=== PATIENT | female | born 1995 | race African-American/Black ===

== ENCOUNTER 2016-08-28 10:36 | Emergency (ER) | payer OTHER ==
[2016-08-28] MEDS ORDERED: Meclizine HCl 25 MG TAB ONE ×2 (11:18→11:19)
[2016-08-28 11:35] LABS: Blood, Urine Negative (Negative); Glucose, Urine (Dipstick) Negative (Negative); Ketone, Urine 40 mg/dL (Negative); Nitrite Negative (Negative); Protein, Urine (Dipstick) Negative (Neg-Trace)
[2016-08-28 11:37] LABS: #Basophils 0.1 thou/uL (0.0-0.2); #Lymphocytes 2.2 thou/uL (1.20-3.40); #Monocytes 0.9 thou/uL (0.11-0.59); #Neutrophils 8.1 thou/uL (1.40-6.50); %Eosinophils 0.4 % (0.0-10.0); %Lymphocytes 19.5 % (21.0-51.0); %Monocytes 7.5 % (0.0-10.0); Hematocrit 38.8 % (36.0-47.0); Mean Platelet Volume 10.2 fL (7.4-10.4); Red Blood Cell (RBC) Count 4.63 mill/uL (4.20-5.40); White Blood Cell (WBC) Count 11.3 thou/uL (4.8-10.8)
[2016-08-28 11:37] LABS: Bilirubin Negative (Negative)
[2016-08-28 11:46] LABS: ALT (SGPT) 8 U/L (0-55); AST (SGOT) 12 U/L (5-34); Alkaline Phosphatase 92 U/L (40-150); Anion Gap 13 mmol/L (10-20); BUN (Urea Nitrogen) 9 mg/dL (7.0-18.7); Bilirubin, Total 0.7 mg/dL (0.2-1.2); Calc. Creatinine Clearance 0 mL/min (70-130); Calcium 8.8 mg/dL (7.8-10.44); Carbon Dioxide 21 mmol/L (22-29); Chloride 108 mmol/L (98-107); Estimated GFR-MDRD Greater than 90; Globulin 4.2 g/dL (2.4-3.5)
--- NOTE | 2016-08-28 12:11 | CT ---
CT HEAD WITHOUT IV CONTRAST: Date: 08/28/16 HISTORY: Persistent vertigo and migraines for 2 days. Hypertension. FINDINGS: There is no evidence of a hemorrhage, acute infarction, mass effect, or midline shift. Ventricular s ystem is normal in size, shape, and position. There is complete opacification of the left maxillary antrum with almost complete opacification of t he visualized right maxillary antrum. There is opacification of the left sphenoid sinus and left eth moidal air cells. Mastoid air cells are clear. Calvarial structures are intact. IMPRESSION: 1. No acute intracranial abnormality is demonstrated. 2. Sinus disease, including opacification of each sphenoid sinus and left frontal sinus. POS: H
--- NOTE | 2016-08-28 12:34 | ERRECORD ---
[facility] EMERGENCY RECORD HPI GENERAL (12:17 PMYE) CHIEF COMPLAINT: Patient presents for evaluation of Dizzy / off balance. HISTORIAN: History provided by patient. MECHANISM OF INJURY: Unknown mechanism. LOCATION: Symptoms are generalized, 21 y/o F who c/o. Dizzyness, vertigo, Feeling "off balance" intermittently over the last month. Worse in the last two days. SEVERITY: Maximum severity of symptoms mild, Currently symptoms are moderate. TIME COURSE: Gradual onset of symptoms. EXACERBATED BY: Patient's condition exacerbated by moving head. RELIEVED BY: Patient's condition relieved by nothing. ROS (12:19 PMYE) CONSTITUTIONAL: Negative constitutional review of systems, Historian denies chills, denies fatigue, denies fever. EYES: Negative eye review of systems, Historian denies eye pain, denies eye redness, denies eye discharge. ENT: Negative ears, nose, throat review of systems, Historian denies dysphasia, denies epistaxis, denies otalgia, denies sore throat. CARDIOVASCULAR: Negative cardiovascular review of systems, Historian denies chest pain, denies dyspnea on exertion, denies syncope, denies palpitations. RESPIRATORY: Negative respiratory review of systems, Historian denies cough, denies shortness of breath, denies wheezing. GI: Negative gastrointestinal review of systems, Historian denies abdominal pain, denies constipation, denies diarrhea, denies nausea, denies vomiting. GENITOURINARY FEMALE: Negative genitourinary review of systems, Historian denies dysuria, denies urgency, denies vaginal bleeding, denies vaginal discharge. MUSCULOSKELETAL: Historian denies arthralgias, denies myalgias. SKIN: Negative skin review of systems, Historian denies rash, denies skin changes. NEUROLOGIC: Historian denies confusion, reports dizziness, denies focal weakness, denies headache, reports vertigo. PSYCHIATRIC: Negative psychiatric review of systems. PAST MEDICAL HISTORY (10:45 [facility]) MEDICAL HISTORY: No past medical history. FEMALE SURGICAL HISTORY: Patient has no surgical history. PSYCHIATRIC HISTORY: No previous psychiatric history. SOCIAL HISTORY: Patient denies alcohol use, Patient denies drug use, Patient has no smoking history, Patient denies alcohol use, Patient denies drug use, Patient has no smoking history, Lives at home, with family. &a-1R&a+25V*p+0X*s7375Y*c202B*c15G*c2P*p-0X&a-25V&a+1R Name: Neida Mata : 1995 F21 MedRec: [id number] AcctNum: [id number] Prepared: SunAug 28, 2016 12:45 by Interface Page 1 of 3 pMD [facility] EMERGENCY RECORD FAMILY HISTORY: Notes: HTN, Crohn's Disease. KNOWN ALLERGIES No Known Drug Allergies CURRENT MEDICATIONS (10:40 [facility]) None VITAL SIGNS (10:37 [facility]) VITAL SIGNS: BP: 126/75, Pulse: 89, Resp: 18, Temp: 98.5 (Oral), Pain: 0, O2 sat: 95 on Room Air, Time: 08/28/2016 10:37. PHYSICAL EXAM (12:19 PMYE) CONSTITUTIONAL: Vital Signs Reviewed, Patient afebrile, Pulse normal, Blood pressure normal, Respiratory rate normal, Patient appears non toxic. HEAD: Head exam included findings of head atraumatic, normocephalic. EYES: Eye exam included findings of eyelids normal to inspection, Pupils equally round and reactive to light, Extraocular muscles intact. ENT: ENT exam normal, Pharynx exam normal, Uvula exam normal, Tonsil exam normal. NECK: Neck exam normal. RESPIRATORY CHEST: Respiratory and chest exam normal, Breath sounds clear, No wheezing, No rales. ABDOMEN FEMALE: Abdominal exam normal, Abdominal exam included findings of abdomen nontender, Bowel sounds normal. BACK: Back exam normal. NEURO: Neuro exam normal, [place] coma scale 15, Neuro exam findings include patient oriented to person, place and time, Speech normal. SKIN: Skin exam normal. PSYCHIATRIC: Psychiatric exam normal, Psychiatric exam included findings of patient oriented to person place and time, Normal affect. MEDICATION ADMINISTRATION SUMMARY Drug Name: Antivert, Dose Ordered: 25 mg, Route: Oral, Status: Given, Time: 11:24 08/28/2016, Detailed record available in Medication Service section. DOCTOR NOTES (12:20 PMYE) TEXT: CT show opacification of mult sinus. Pt reports green d/c when blowing nose. Likely sinusitis causing disequilibrium. Will tx and pt will f/u w/ PCP. PROBLEM LIST No recorded problems &a-1R&a+25V*p+0X*u8506B*c202B*c15G*c2P*p-0X&a-25V&a+1R Name: Neida Mata : 1995 F21 MedRec: [id number] AcctNum: [id number] Prepared: SunAug 28, 2016 12:45 by Interface Page 2 of 3 pMD [facility] EMERGENCY RECORD DIAGNOSIS (12:22 PMYE) FINAL: PRIMARY: ACUTE SINUSITIS UNSPECIFIED. PRESCRIPTION (12:24 PMYE) doxycycline hyclate oral: CAPSULE : 100 mg : ORAL : Quantity: 100 Unit: mg Route: ORAL Schedule: every 12 hours Dispense: 10 Unit: mg May substitute. Refills: No Refills . NOTES: No Refills. DISPOSITION PATIENT: Disposition Type: Discharge, Disposition: *Discharge Home. (12:22 PMYE) Patient left the department. (12:40 [facility]) Mcwilliams: PMYE=DO Cid Paul [facility]=JC Perez, Grisel &a-1R&a+25V*p+0X*t4220O*c202B*c15G*c2P*p-0X&a-25V&a+1R Name: Neida Mata : 1995 F21 MedRec: [id number] AcctNum: [id number] Prepared: SunAug 28, 2016 12:45 by Interface Page 3 of 3 pMD MTDD
--- NOTE | 2016-08-28 12:40 | PICIS ---
[facility] EMERGENCY RECORD TRIAGE (10:40 RK) TRIAGE NOTES: Pt has been having migraines x2 days and c/o hypertension to EMS. VSS per EMS, pt has received 4 mg Zofran. Pt reports hx migraines. (10:40 RK) PATIENT: NAME: Neida Mata, AGE: 21, GENDER: female, : Lia 1995, TIME OF GREET: SunAug 28, 2016 10:37, PREFERRED LANGUAGE: Romansh, ETHNICITY: Not or , ECODE BILLING MAP: [facility] ER, SSN: [id number], Zip Code: [address], KG WEIGHT: 77.11 (est.), PHONE: , , , PERSON ID: [id number], PCP: Beverly Guillen. (10:40 RUST) COMPLAINT: NAUSEA,DIZZINESS. (10:40 RKUH) ADMISSION: URGENCY: 4 Non Urgent, ADMISSION SOURCE: Home, AMBULANCE: [facility], TRANSPORT: AMBULANCE - [facility], BED: ER -02. (10:40 RK) IMMUNIZATIONS: Flu vaccine not up to date, Tetanus not up to date. (10:45 RKUH) SIRS SCORING: Heart Rate 55-109 (0), Temp range 96.8-101.1 (0), respiratory rate 12-24 (0), Mental Status altered: no (0). (10:45 RK) TRIAGE SCREENING: Patient denies suicidal ideation, Patient denies presence of domestic violence. (10:45 RK) LMP: , P: 2. (10:45 RK) PROVIDERS: TRIAGE NURSE: Grisel Perez RN. (10:40 RK) VITAL SIGNS: BP 126/75, Pulse 89, Resp 18, Temp 98.5, (Oral), Pain 0, O2 Sat 95, on Room Air, Time 08/28/2016 10:37. (10:37 RK) PREVIOUS VISIT ALLERGIES: No Known Drug Allergies. (10:40 RKUH) No Known Drug Allergies. (10:45 RKUH) KNOWN ALLERGIES No Known Drug Allergies CURRENT MEDICATIONS (10:40 RKUH) None VITAL SIGNS (10:37 RKUH) VITAL SIGNS: BP: 126/75, Pulse: 89, Resp: 18, Temp: 98.5 (Oral), Pain: 0, O2 sat: 95 on Room Air, Time: 08/28/2016 10:37. NURSING ASSESSMENT: ABDOMEN (10:40 RUST) CONSTITUTIONAL: Complex assessment performed, Patient arrives, via [facility], Gait steady, History obtained from patient, Patient appears comfortable, Patient cooperative, Patient alert, Oriented to person, place and time, Skin warm, Skin dry, Skin normal in color, Mucous membranes pink, Mucous membranes moist, Patient is well-groomed, Pt has had DODSON x2 days and reports hx migraines. She is in no pain currently, but is feelizing dizzy and still nauseated. She has not thrown up today, but reports throwing 4 times in the last two days. Denies any fever. PAIN: Patient rates pain as 0 out of 10. &a-1R&a+25V*p+0X*h0253C*c202B*c15G*c2P*p-0X&a-25V&a+1R Name: Neida Mata : 1995 F21 MedRec: [id number] AcctNum: [id number] Prepared: SunAug 28, 2016 12:51 by Interface Page 1 of 7 pMD [facility] EMERGENCY RECORD ABDOMEN: Abdomen assessment findings include abdomen symmetrical, Abdomen soft, non-tender, Bowel sound normal, Associated with nausea, Associated with vomiting, no associated diarrhea, no associated constipation. LMP: : 2, Para: 2, First day last menstrual period, Last period started on 08/11/2016 10:43, No control utilized. SAFETY: Side rails up, Cart/Stretcher in lowest position, Call light within reach, Hospital ID band on. NURSING PROCEDURE: DISCHARGE NOTE (12:39 RUST) DISCHARGE: Patient discharged to home, ambulating without assistance, family driving, accompanied by parent, Discharge instructions given to patient, Simple or moderate discharge teaching performed, by JC Recinos, Patient treated and evaluated by physician. BELONGINGS: Belongings and valuables with patient upon arrival to the Emergency Department include:, Belongings and valuables with patient at time of discharge include:. NURSING PROCEDURE: URINE COLLECTION (11:25 RUST) URINE COLLECTION FEMALE: Urine collected by mid-stream clean catch, Output amount (mL) 200, urine martha in color, and clear, Specimen labeled in the presence of the patient and sent to lab. SAFETY: Side rails up, Cart/Stretcher in lowest position, Call light within reach, Hospital ID band on. ORDER DETAILS Order Name: CBC with Differential, Status: Active, Time: 11:11 08/28/2016, User: JESSICA, - Ordered for: DO Cid Paul, - Entered by: DO Cid Paul - [facility] Aug 28, 2016 11:11, - Quantity: 1, Order Name: Comprehensive Metabolic Panel, Status: Active, Time: 11:11 08/28/2016, User: JESSICA, - Ordered for: DO Cid Paul, - Entered by: DO Cid Paul - Nick Aug 28, 2016 11:11, - Quantity: 1, Order Name: CT Brain WO Con, Status: Active, Time: 11:07 08/28/2016, User: JESSICA, - Ordered for: DO Cid Paul, - Entered by: DO Cid Paul - [facility] Aug 28, 2016 11:07, - Quantity: 1, Order Name: Test, Urine (BHCG), Status: Active, Time: 11:11 08/28/2016, User: JESSICA, - Ordered for: DO Cid Paul, - Entered by: DO Cid Paul - [facility] Aug 28, 2016 11:11, - Quantity: 1, Order Name: Urinalysis w/ Rflx Microscopic, Status: Active, Time: 11:11 08/28/2016, User: JESSICA, &a-1R&a+25V*p+0X*a9872J*c202B*c15G*c2P*p-0X&a-25V&a+1R Name: Neida Mata : 1995 F21 MedRec: [id number] AcctNum: [id number] Prepared: SunAug 28, 2016 12:51 by Interface Page 2 of 7 pMD [facility] EMERGENCY RECORD - Ordered for: DO Cid Paul, - Entered by: DO Cid Paul - [facility] Aug 28, 2016 11:11, - Quantity: 1. MEDICATION ADMINISTRATION SUMMARY Drug Name: Antivert, Dose Ordered: 25 mg, Route: Oral, Status: Given, Time: 11:24 08/28/2016, Detailed record available in Medication Service section. MEDICATION SERVICE (11:24 PMYE) Antivert: Order: Antivert (meclizine HCl) - Dose: 25 mg : Oral Ordered by: Griffin Cid DO Entered by: Griffin Cid DO SunAug 28, 2016 11:12 , Acknowledged by: Grisel Perez RN SunAug 28, 2016 11:17 Documented as given by: Grisel Perez RN SunAug 28, 2016 11:24 Patient, Medication, Dose, Route and Time verified prior to administration. Amount given: 25 mg, Site: Medication administered P.O., Correct patient, time, route, dose and medication confirmed prior to administration, Patient advised of actions and side-effects prior to administration, Allergies confirmed and medications reviewed prior to administration, Patient tolerated procedure well, Administered by JC Recinos, Patient in position of comfort, Side rails up, Cart in lowest position, Call light in reach. HPI GENERAL (12:17 PMYE) CHIEF COMPLAINT: Patient presents for evaluation of Dizzy / off balance. HISTORIAN: History provided by patient. MECHANISM OF INJURY: Unknown mechanism. LOCATION: Symptoms are generalized, 21 y/o F who c/o. Dizzyness, vertigo, Feeling "off balance" intermittently over the last month. Worse in the last two days. SEVERITY: Maximum severity of symptoms mild, Currently symptoms are moderate. TIME COURSE: Gradual onset of symptoms. EXACERBATED BY: Patient's condition exacerbated by moving head. RELIEVED BY: Patient's condition relieved by nothing. ROS (12:19 PMYE) CONSTITUTIONAL: Negative constitutional review of systems, Historian denies chills, denies fatigue, denies fever. EYES: Negative eye review of systems, Historian denies eye pain, denies eye redness, denies eye discharge. ENT: Negative ears, nose, throat review of systems, Historian denies dysphasia, denies epistaxis, denies otalgia, denies sore throat. &a-1R&a+25V*p+0X*r2804U*c202B*c15G*c2P*p-0X&a-25V&a+1R Name: AdolfoJavyarnol Robertson : 1995 F21 MedRec: [id number] AcctNum: [id number] Prepared: SunAug 28, 2016 12:51 by Interface Page 3 of 7 D [facility] EMERGENCY RECORD CARDIOVASCULAR: Negative cardiovascular review of systems, Historian denies chest pain, denies dyspnea on exertion, denies syncope, denies palpitations. RESPIRATORY: Negative respiratory review of systems, Historian denies cough, denies shortness of breath, denies wheezing. GI: Negative gastrointestinal review of systems, Historian denies abdominal pain, denies constipation, denies diarrhea, denies nausea, denies vomiting. GENITOURINARY FEMALE: Negative genitourinary review of systems, Historian denies dysuria, denies urgency, denies vaginal bleeding, denies vaginal discharge. MUSCULOSKELETAL: Historian denies arthralgias, denies myalgias. SKIN: Negative skin review of systems, Historian denies rash, denies skin changes. NEUROLOGIC: Historian denies confusion, reports dizziness, denies focal weakness, denies headache, reports vertigo. PSYCHIATRIC: Negative psychiatric review of systems. PAST MEDICAL HISTORY (10:45 [facility]) MEDICAL HISTORY: No past medical history. FEMALE SURGICAL HISTORY: Patient has no surgical history. PSYCHIATRIC HISTORY: No previous psychiatric history. SOCIAL HISTORY: Patient denies alcohol use, Patient denies drug use, Patient has no smoking history, Patient denies alcohol use, Patient denies drug use, Patient has no smoking history, Lives at home, with family. FAMILY HISTORY: Notes: HTN, Crohn's Disease. PHYSICAL EXAM (12:19 PMYE) CONSTITUTIONAL: Vital Signs Reviewed, Patient afebrile, Pulse normal, Blood pressure normal, Respiratory rate normal, Patient appears non toxic. HEAD: Head exam included findings of head atraumatic, normocephalic. EYES: Eye exam included findings of eyelids normal to inspection, Pupils equally round and reactive to light, Extraocular muscles intact. ENT: ENT exam normal, Pharynx exam normal, Uvula exam normal, Tonsil exam normal. NECK: Neck exam normal. RESPIRATORY CHEST: Respiratory and chest exam normal, Breath sounds clear, No wheezing, No rales. ABDOMEN FEMALE: Abdominal exam normal, Abdominal exam included findings of abdomen nontender, Bowel sounds normal. BACK: Back exam normal. NEURO: Neuro exam normal, [place] coma scale 15, Neuro exam findings include patient oriented to person, place and time, Speech normal. SKIN: Skin exam normal. &a-1R&a+25V*p+0X*n2199B*c202B*c15G*c2P*p-0X&a-25V&a+1R Name: Neida Mata : 1995 F21 MedRec: [id number] AcctNum: [id number] Prepared: SunAug 28, 2016 12:51 by Interface Page 4 of 7 pMD [facility] EMERGENCY RECORD PSYCHIATRIC: Psychiatric exam normal, Psychiatric exam included findings of patient oriented to person place and time, Normal affect. EVENTS TRANSFER: Triage to Emergency Emergency Room -02. (SunAug 28, 2016 10:40 RUST) Removed from Emergency Emergency Room -02. (12:40 RUST) DOCTOR NOTES (12:20 PMYE) TEXT: CT show opacification of mult sinus. Pt reports green d/c when blowing nose. Likely sinusitis causing disequilibrium. Will tx and pt will f/u w/ PCP. PROBLEM LIST No recorded problems DIAGNOSIS (12:22 PMYE) FINAL: PRIMARY: ACUTE SINUSITIS UNSPECIFIED. DISPOSITION PATIENT: Disposition Type: Discharge, Disposition: *Discharge Home. (12:22 PMYE) Patient left the department. (12:40 [facility]) INSTRUCTION (12:24 PMYE) DISCHARGE: SINUSITIS, ABX TX. FOLLOWUP: [facility], [address] [place] [address] , , Follow up with Primary Care Physician in 1-2 days. SPECIAL: Follow-up with your PCP. PRESCRIPTION (12:24 PMYE) doxycycline hyclate oral: CAPSULE : 100 mg : ORAL : Quantity: 100 Unit: mg Route: ORAL Schedule: every 12 hours Dispense: 10 Unit: mg May substitute. Refills: No Refills . NOTES: No Refills. ADMIN (12:24 PMYE) DIGITAL SIGNATURE: DO Cid Paul. RESULTS (11:54 JPAR) LABORATORY: Comprehensive Metabolic Panel Collection DT: SunAug 28, 2016 11:34, Sodium 139 mmol/L, Range (136-145), *Potassium 3.4 - L mmol/L, Range (3.5-5.1), *Chloride 108 - H mmol/L, Range (98-107), *Carbon Dioxide 21 - L mmol/L, Range (22-29), Anion Gap 13 mmol/L, Range (10-20), BUN (Urea Nitrogen) 9 mg/dL, Range (7.0-18.7), &a-1R&a+25V*p+0X*b1504R*c202B*c15G*c2P*p-0X&a-25V&a+1R Name: Neida aMta : 1995 F21 MedRec: [id number] AcctNum: [id number] Prepared: SunAug 28, 2016 12:51 by Interface Page 5 of 7 pMD [facility] EMERGENCY RECORD Creatinine 0.70 mg/dL, Range (0.6-1.1), Estimated GFR-MDRD Greater than 90 , Reference Range for Estimated GFR: Greater than 90, mL/min/1.73 m2 NOTE: The MDRD equation has not been validated for use, with the elderly (over 70 years of age), women, patients with, serious comorbid condition or persons with extremes of body size, muscle, mass, or nutritional status. , Glucose 84 mg/dL, Range (70-105), Calcium 8.8 mg/dL, Range (7.8-10.44), Bilirubin, Total 0.7 mg/dL, Range (0.2-1.2), Protein, Total 8.0 g/dL, Range (6.0-8.3), NOTE: Plasma values are generally 0.3 to 0.5 g/dL higher than serum values, due to the presence of fibrinogen. , Albumin 3.8 g/dL, Range (3.5-5.0), *Globulin 4.2 - H g/dL, Range (2.4-3.5), *Alb/Glob Ratio 0.9 - L g/dL, Range (1.2-2.2), Alkaline Phosphatase 92 U/L, Range (40-150), AST (SGOT) 12 U/L, Range (5-34), ALT (SGPT) 8 U/L, Range (0-55). Urinalysis w/ Rflx Microscopic Collection DT: SunAug 28, 2016 11:34, Color Yellow , Range (Yellow), Clarity Clear , Range (Clear), Specific [place], Urine 1.031 , Range (1.002-1.036), pH, Urine 6.0 , Range (5.0-9.0), Leukocyte Negative , Range (Negative), Nitrite Negative , Range (Negative), Protein, Urine (Dipstick) Negative mg/dL, Range (Neg-Trace), Glucose, Urine (Dipstick) Negative mg/dL, Range (Negative), *Ketone, Urine 40 - H mg/dL, Range (Negative), Urobilinogen 1.0 mg/dL, Range (0.2-1.0), Bilirubin Negative , Range (Negative), , Blood, Urine Negative , Range (Negative). Test, Urine (BHCG) Collection DT: SunAug 28, 2016 11:34, Test - Urine (BHCG) NEGATIVE , Range (NEGATIVE), Method of sensitivity- Indeterminant: results should be repeated, after 48 hours. Positive: results may be detected as early as 4-5 days before a first missed menses. Elimination of BHCG-, Elimination following first trimester D&C: 29-44 Days , Elimination following term : 8-24 Days , Specific [place] 1.031 , Range (1.002-1.036), A dilute urine specimen may, not contain associate sales representative &a-1R&a+25V*p+0X*y7018G*c202B*c15G*c2P*p-0X&a-25V&a+1R Name: Neida Mata : 1995 F21 MedRec: [id number] AcctNum: [id number] Prepared: SunAug 28, 2016 12:51 by Interface Page 6 of 7 pMD [facility] EMERGENCY RECORD levels of hCG. If is still, suspected, a first morning urine specimen OR a random blood specimen should, be obtained from the patient 48-72 hours later and re-tested. , . CBC with Differential Collection DT: SunAug 28, 2016 11:34, *White Blood Cell (WBC) Count 11.3 - H thou/uL, Range (4.8-10.8), Red Blood Cell (RBC) Count 4.63 mill/uL, Range (4.20-5.40), Hemoglobin 12.3 g/dL, Range (12.0-16.0), Hematocrit 38.8 %, Range (36.0-47.0), Mean Corpuscular Volume 83.9 fl, Range (81.0-99.0), *Mean Corpuscular Hemoglobin 26.7 - L pg, Range (27.0-31.0), *Mean Corpuscular HGB CONC 31.8 - L g/dL, Range (32.0-36.0), RBC Distribution Width 12.7 %, Range (11.5-14.5), Platelet Count 215 thou/uL, Range (130-400), Mean Platelet Volume 10.2 fL, Range (7.4-10.4), %Neutrophils 71.6 %, Range (42.0-75.0), *%Lymphocytes 19.5 - L %, Range (21.0-51.0), %Monocytes 7.5 %, Range (0.0-10.0), %Eosinophils 0.4 %, Range (0.0-10.0), %Basophils 1.0 %, Range (0.0-1.0), *#Neutrophils 8.1 - H thou/uL, Range (1.40-6.50), #Lymphocytes 2.2 thou/uL, Range (1.20-3.40), *#Monocytes 0.9 - H thou/uL, Range (0.11-0.59), #Eosinphils 0.0 thou/uL, Range (0.0-0.7), #Basophils 0.1 thou/uL, Range (0.0-0.2). Mcwilliams: PAWAN=JC Villalobos, Derrell LOPEZ=DO Cid Paul RUST=JC Perez, Grisel &a-1R&a+25V*p+0X*q3775F*c202B*c15G*c2P*p-0X&a-25V&a+1R Name: Neida Mata : 1995 F21 MedRec: [id number] AcctNum: [id number] Prepared: SunAug 28, 2016 12:51 by Interface Page 7 of 7 pMD MTDD
== END 2016-08-28 12:35 | disposition home or self-care (01) ==
LOC: NAV ERS 10:36
DX: J01.90 Acute sinusitis, unspecified (principal)
CPT/HCPCS: 36415; 70450; 80053; 81003; 81025; 85025

== ENCOUNTER 2016-09-07 15:40 | Emergency (ER) | payer OTHER ==
--- NOTE | 2016-09-07 16:34 | ERRECORD ---
[facility] EMERGENCY RECORD HPI EAR PAIN (16:25 JLOY) CHIEF COMPLAINT: Patient presents for evaluation of Pt with 2 weeks of difficulty hearing out of the left ear. Started just after an eppisode of dizziness and sinus congestion. No other symptoms. Pt has tried drops with no help., to the left ear. HISTORIAN: History provided by patient. LOCATION: Symptoms are localized, most severe in the left ear. TIME COURSE: Patient unable to describe onset of symptoms, There has been no change in the patient's symptoms over time, are constant. ASSOCIATED WITH: No associated chills, No associated cough, No associated dizziness, No associated drainage, No associated fever, No associated foreign body, No associated headache, No associated nausea, No associated sore throat, No associated trauma, No associated upper respiratory infection. EXACERBATED BY: Patient's condition exacerbated by nothing. RELIEVED BY: Patient's condition relieved by nothing. ROS (16:27 JLOY) CONSTITUTIONAL: Historian denies chills, denies fever. ENT: Historian reports hearing changes, denies otalgia, denies otorrhea, denies rhinorrhea, denies sore throat, denies tinnitus. RESPIRATORY: Historian denies cough. GI: Historian denies nausea, denies vomiting. NEUROLOGIC: Historian denies headache. PAST MEDICAL HISTORY MEDICAL HISTORY: Flu vaccine up to date, No past medical history. (15:52 BDON) FEMALE SURGICAL HISTORY: Patient has no surgical history. (15:52 BDON) PSYCHIATRIC HISTORY: No previous psychiatric history. (15:52 BDON) SOCIAL HISTORY: Patient denies alcohol use, Patient denies drug use, Patient has no smoking history, Lives at home, with family. (15:52 BDON) FAMILY HISTORY: Notes: HTN, Crohn's Disease. (15:52 BDON) NOTES: Nursing records reviewed, Agree with nursing records. (16:27 JLOY) KNOWN ALLERGIES No Known Drug Allergies CURRENT MEDICATIONS (15:51 BDON) None VITAL SIGNS VITAL SIGNS: BP: 127/65, Pulse: 84, Resp: 17, Temp: 97.6 (Oral), &a-1R&a+25V*p+0X*z1082W*c202B*c15G*c2P*p-0X&a-25V&a+1R Name: Neida Mata : 1995 F21 MedRec: [id number] AcctNum: [id number] Prepared: SunSep 07, 2016 16:52 by Interface Page 1 of [address] [facility] EMERGENCY RECORD Pain: 4, O2 sat: 99, Time: 09/07/2016 15:49. (15:49 BDON) Resp: 17, Pain: 4, Time: 09/07/2016 16:36. (16:36 BDON) PHYSICAL EXAM (16:27 JLOY) CONSTITUTIONAL: Vital signs reviewed, Patient appears non toxic, Patient alert and oriented to person, place and time. EYES: Eye exam included findings of eyelids normal to inspection, Pupils equally round and reactive to light, Conjunctiva normal. ENT: Ear exam included findings of, left external ear normal, right external ear normal, tympanic membrane with effusion on left, tympanic membrane with effusion on the right, Pharynx exam normal, Uvula exam normal, Tonsil exam normal, Mouth exam normal, mucous membranes moist. RESPIRATORY CHEST: Respiratory exam included findings of no respiratory distress, Chest exam included findings of chest movement symmetrical. NEURO: Rincon coma scale 15, Neuro exam findings include patient oriented to person, place and time, Speech normal. PSYCHIATRIC: Normal affect. PROBLEM LIST No recorded problems DIAGNOSIS (16:23 JLOY) FINAL: PRIMARY: ACUTE SEROUS OTITIS MEDIA UNS EAR. PRESCRIPTION No recorded prescriptions DISPOSITION PATIENT: Disposition Type: Discharge, Disposition: *Discharge Home. (16:23 JLOY) Patient left the department. (16:45 BDON) Mcwilliams: AGNES=JC Leos, Brooke DURANTOY=MD Navi, Jama &a-1R&a+25V*p+0X*n1049B*c202B*c15G*c2P*p-0X&a-25V&a+1R Name: Neida Mata : 1995 F21 MedRec: [id number] AcctNum: [id number] Prepared: SunSep 07, 2016 16:52 by Interface Page 2 of 2 pMD MTDD
--- NOTE | 2016-09-07 16:56 | PICIS ---
[facility] EMERGENCY RECORD TRIAGE (SunSep 07, 2016 15:51 BDON) TRIAGE NOTES: Decrease hearing left ear. (SunSep 07, 2016 15:51 BDON) PATIENT: NAME: Neida Mata, AGE: 21, GENDER: female, : [facility] 1995, TIME OF GREET: SunSep 07, 2016 15:41, PREFERRED LANGUAGE: Swedish, ETHNICITY: Not or , ECODE BILLING MAP: [facility], SSN: [id number], Zip Code: [address], KG WEIGHT: 77.11, PHONE: , , , PERSON ID: [id number], PCP: Beverly Guillen. (SunSep 07, 2016 15:51 BDON) COMPLAINT: LT EAR,DIFFICULTY HEARING,2 WKS. (SunSep 07, 2016 15:51 BDON) ADMISSION: URGENCY: 4 Non Urgent, ADMISSION SOURCE: Home, TRANSPORT: Walk-in, BED: TRIAGE. (SunSep 07, 2016 15:51 BDON) ASSESSMENT: Assessment: Decrease hearing in left ear. (15:52 BDON) LMP: Last menstrual period: 09/07/2016. (15:52 BDON) TREATMENTS IN PROGRESS: Treatments given Prehospital: none. (15:52 BDON) PROVIDERS: TRIAGE NURSE: Brooke Leos RN. (Lia Sep 07, 2016 15:51 BDON) VITAL SIGNS: BP 127/65, Pulse 84, Resp 17, Temp 97.6, (Oral), Pain 4, O2 Sat 99, Time 09/07/2016 15:49. (15:49 BDON) PREVIOUS VISIT ALLERGIES: No Known Drug Allergies. (SunSep 07, 2016 15:51 BDON) No Known Drug Allergies. (15:52 BDON) KNOWN ALLERGIES No Known Drug Allergies CURRENT MEDICATIONS (15:51 BDON) None VITAL SIGNS VITAL SIGNS: BP: 127/65, Pulse: 84, Resp: 17, Temp: 97.6 (Oral), Pain: 4, O2 sat: 99, Time: 09/07/2016 15:49. (15:49 BDON) Resp: 17, Pain: 4, Time: 09/07/2016 16:36. (16:36 BDON) NURSING ASSESSMENT: EAR (15:54 BDON) CONSTITUTIONAL: Patient arrives ambulatory, Gait steady, History obtained from patient, Patient appears comfortable, Patient cooperative, Patient alert, Oriented to person, place and time, Skin warm, Skin dry, Skin normal in color. EAR: Hearing deficit described as, hearing loss, to the left ear. SAFETY: Cart/Stretcher in lowest position, Hospital ID band on, Patient in view of the nursing station. NURSING PROCEDURE: DISCHARGE NOTE (16:36 BDON) DISCHARGE: Patient discharged to home, ambulating without &a-1R&a+25V*p+0X*z3254L*c202B*c15G*c2P*p-0X&a-25V&a+1R Name: Neida Mata : 1995 F21 MedRec: [id number] AcctNum: [id number] Prepared: [facility] Sep 07, 2016 16:52 by Interface Page 1 of 4 pMD [facility] EMERGENCY RECORD assistance, Summary of Care printed/ provided, Patient requested and was provided an electronic copy of Discharge Instructions, Transition record given to patient, Discharge instructions given to patient, Simple or moderate discharge teaching performed, Patient treated and evaluated by physician. VITAL SIGNS: Resp: 17, Pain: 4. HPI EAR PAIN (16:25 JLOY) CHIEF COMPLAINT: Patient presents for evaluation of Pt with 2 weeks of difficulty hearing out of the left ear. Started just after an eppisode of dizziness and sinus congestion. No other symptoms. Pt has tried drops with no help., to the left ear. HISTORIAN: History provided by patient. LOCATION: Symptoms are localized, most severe in the left ear. TIME COURSE: Patient unable to describe onset of symptoms, There has been no change in the patient's symptoms over time, are constant. ASSOCIATED WITH: No associated chills, No associated cough, No associated dizziness, No associated drainage, No associated fever, No associated foreign body, No associated headache, No associated nausea, No associated sore throat, No associated trauma, No associated upper respiratory infection. EXACERBATED BY: Patient's condition exacerbated by nothing. RELIEVED BY: Patient's condition relieved by nothing. ROS (16:27 JLOY) CONSTITUTIONAL: Historian denies chills, denies fever. ENT: Historian reports hearing changes, denies otalgia, denies otorrhea, denies rhinorrhea, denies sore throat, denies tinnitus. RESPIRATORY: Historian denies cough. GI: Historian denies nausea, denies vomiting. NEUROLOGIC: Historian denies headache. PAST MEDICAL HISTORY MEDICAL HISTORY: Flu vaccine up to date, No past medical history. (15:52 BDON) FEMALE SURGICAL HISTORY: Patient has no surgical history. (15:52 BDON) PSYCHIATRIC HISTORY: No previous psychiatric history. (15:52 BDON) SOCIAL HISTORY: Patient denies alcohol use, Patient denies drug use, Patient has no smoking history, Lives at home, with family. (15:52 BDON) FAMILY HISTORY: Notes: HTN, Crohn's Disease. (15:52 BDON) NOTES: Nursing records reviewed, Agree with nursing records. (16:27 JLOY) PHYSICAL EXAM (16:27 JL) &a-1R&a+25V*p+0X*y5632B*c202B*c15G*c2P*p-0X&a-25V&a+1R Name: Neida Mata : 1995 F21 MedRec: [id number] AcctNum: [id number] Prepared: Lia Sep 07, 2016 16:52 by Interface Page 2 of 4 pMD [facility] EMERGENCY RECORD CONSTITUTIONAL: Vital signs reviewed, Patient appears non toxic, Patient alert and oriented to person, place and time. EYES: Eye exam included findings of eyelids normal to inspection, Pupils equally round and reactive to light, Conjunctiva normal. ENT: Ear exam included findings of, left external ear normal, right external ear normal, tympanic membrane with effusion on left, tympanic membrane with effusion on the right, Pharynx exam normal, Uvula exam normal, Tonsil exam normal, Mouth exam normal, mucous membranes moist. RESPIRATORY CHEST: Respiratory exam included findings of no respiratory distress, Chest exam included findings of chest movement symmetrical. NEURO: Vanessa coma scale 15, Neuro exam findings include patient oriented to person, place and time, Speech normal. PSYCHIATRIC: Normal affect. EVENTS TRANSFER: Triage to Emergency Triage. (15:51 BDON) Emergency Triage to Emergency Room -03. (15:51 BDON) Removed from Emergency Emergency Room -03. (16:45 BDON) PROBLEM LIST No recorded problems DIAGNOSIS (16:23 JLOY) FINAL: PRIMARY: ACUTE SEROUS OTITIS MEDIA UNS EAR. DISPOSITION PATIENT: Disposition Type: Discharge, Disposition: *Discharge Home. (16:23 JLOY) Patient left the department. (16:45 BDON) INSTRUCTION (16:25 JLOY) DISCHARGE: SEROUS OTITIS MEDIA ADULT. FOLLOWUP: [facility] [address], [facility], [address] [place] [address] , , [place], [place], Otolaryngology, [address] [place] [phone], , Follow up with Specialist in 10-14 days. SPECIAL: Try Benadryl for a few days and see if that helps your ears to drain. PRESCRIPTION No recorded prescriptions IMAGING *DISCHARGE INSTRUCTIONS RECEIPT: Image captured from scanner. (16:41 BDON) *SUPPLY CHARGE SHEET: Image captured from scanner. (16:43 BDON) ADMIN &a-1R&a+25V*p+0X*p7167O*c202B*c15G*c2P*p-0X&a-25V&a+1R Name: Neida Mata : 1995 F21 MedRec: [id number] AcctNum: [id number] Prepared: SunSep 07, 2016 16:52 by Interface Page 3 of 4 pMD [facility] EMERGENCY RECORD DIGITAL SIGNATURE: MD Mcelroy Joshua. (16:27 JLOY) JC Leos Bettye. (16:45 BDON) Mcwilliams: BDON=JC Leos Bettye JLOY=MD Mcelroy Joshua &a-1R&a+25V*p+0X*m2664S*c202B*c15G*c2P*p-0X&a-25V&a+1R Name: Neida Mata : 1995 F21 MedRec: [id number] AcctNum: [id number] Prepared: SunSep 07, 2016 16:52 by Interface Page 4 of 4 pMD MTDD
== END 2016-09-07 16:36 | disposition home or self-care (01) ==
LOC: NAV ERS 15:40
DX: H65.02 Acute serous otitis media, left ear (principal)
CPT/HCPCS: 99282

== ENCOUNTER 2016-10-09 09:13 | Emergency (ER) | payer OTHER ==
[2016-10-09] MEDS ORDERED: Silver Sulfadiazine 1% Cream 50 GM JAR ONE (09:58)
== END 2016-10-09 10:09 | disposition home or self-care (01) ==
LOC: NAV ERS 09:13
DX: T25.222A Burn of second degree of left foot, initial encounter (principal); X12.XXXA Contact with other hot fluids, initial encounter
CPT/HCPCS: 16020

== ENCOUNTER 2016-11-15 16:27 | Emergency (ER) | payer OTHER ==
[2016-11-15] MEDS ORDERED: diphenhydrAMINE HCl 50 MG/ML 1 ML VIAL ONE (17:59)
[2016-11-15] MEDS ORDERED: Sodium Chloride 0.9% 1,000 ML ONE (17:59)
[2016-11-15 18:32] LABS: #Basophils 0.1 thou/uL (0.0-0.2); #Lymphocytes 1.3 thou/uL (1.20-3.40); #Monocytes 1.2 thou/uL (0.11-0.59); #Neutrophils 9.8 thou/uL (1.40-6.50); %Basophils 0.6 % (0.0-1.0); %Eosinophils 0.3 % (0.0-10.0); %Lymphocytes 10.5 % (21.0-51.0); %Monocytes 9.4 % (0.0-10.0); %Neutrophils 79.2 % (42.0-75.0); Hemoglobin 12.3 g/dL (12.0-16.0); Mean Corpuscular HGB CONC 32.5 g/dL (32.0-36.0); Mean Corpuscular Hemoglobin 26.3 pg (27.0-31.0); Mean Corpuscular Volume 80.9 fl (81.0-99.0); Mean Platelet Volume 9.7 fL (7.4-10.4); Platelet Count 190 thou/uL (130-400); RBC Distribution Width 14.6 % (11.5-14.5); Red Blood Cell (RBC) Count 4.67 mill/uL (4.20-5.40); White Blood Cell (WBC) Count 12.4 thou/uL (4.8-10.8)
[2016-11-15 18:46] LABS: ALT (SGPT) 7 U/L (0-55); AST (SGOT) 12 U/L (5-34); Albumin 3.8 g/dL (3.5-5.0); Alkaline Phosphatase 85 U/L (40-150); Anion Gap 16 mmol/L (10-20); BUN (Urea Nitrogen) 10 mg/dL (7.0-18.7); Bilirubin, Total 0.7 mg/dL (0.2-1.2); Calc. Creatinine Clearance 0 mL/min (70-130); Calcium 9.1 mg/dL (7.8-10.44); Carbon Dioxide 20 mmol/L (22-29); Chloride 106 mmol/L (98-107); Estimated GFR-MDRD Greater than 90; Globulin 4.2 g/dL (2.4-3.5); Glucose 83 mg/dL (70-105); Potassium 3.7 mmol/L (3.5-5.1); Sodium 138 mmol/L (136-145)
== END 2016-11-15 19:06 | disposition home or self-care (01) ==
LOC: NAV ERS 16:27
DX: O21.9 Vomiting of pregnancy, unspecified (principal); O99.89 Other specified diseases and conditions complicating pregnancy, childbirth and the puerperium; R19.7 Diarrhea, unspecified; Z3A.09 9 weeks gestation of pregnancy
CPT/HCPCS: 80053; 85025; J1200; J7050

== ENCOUNTER 2017-01-26 12:19 | Emergency (ER) | payer MEDICAID, OTHER ==
[2017-01-26] MEDS ORDERED: Ondansetron HCl/PF 4 MG/2 ML Vial ONE (12:39)
[2017-01-26] MEDS ORDERED: Sodium Chloride 0.9% 1,000 ML ONE (12:39)
[2017-01-26 13:01] LABS: #Basophils 0.1 thou/uL (0.0-0.2); #Eosinphils 0.1 thou/uL (0.0-0.7); #Lymphocytes 1.2 thou/uL (1.20-3.40); #Monocytes 0.8 thou/uL (0.11-0.59); #Neutrophils 6.5 thou/uL (1.40-6.50); %Basophils 0.6 % (0.0-1.0); %Eosinophils 0.9 % (0.0-10.0); %Lymphocytes 13.6 % (21.0-51.0); %Monocytes 9.2 % (0.0-10.0); %Neutrophils 75.6 % (42.0-75.0); White Blood Cell (WBC) Count 8.6 thou/uL (4.8-10.8)
[2017-01-26 13:03] LABS: ALT (SGPT) 12 U/L (8-55); AST (SGOT) 13 U/L (5-34); Albumin 3.2 g/dL (3.5-5.0); Alkaline Phosphatase 66 U/L (40-150); Anion Gap 14 mmol/L (10-20); BUN (Urea Nitrogen) 6 mg/dL (7.0-18.7); Bilirubin, Total 0.5 mg/dL (0.2-1.2); Calc. Creatinine Clearance 0 mL/min (70-130); Calcium 8.3 mg/dL (7.8-10.44); Carbon Dioxide 20 mmol/L (22-29); Chloride 104 mmol/L (98-107); Estimated GFR-MDRD Greater than 90; Globulin 3.8 g/dL (2.4-3.5); Glucose 82 mg/dL (70-105); Potassium 3.4 mmol/L (3.5-5.1); Sodium 135 mmol/L (136-145)
[2017-01-26 13:14] LABS: Mean Corpuscular HGB CONC 32.4 g/dL (32.0-36.0); Mean Corpuscular Hemoglobin 26.7 pg (27.0-31.0); Mean Corpuscular Volume 82.3 fl (81.0-99.0); Mean Platelet Volume 10.4 fL (7.4-10.4); Platelet Count 169 thou/uL (130-400); RBC Distribution Width 14.7 % (11.5-14.5); Red Blood Cell (RBC) Count 4.12 mill/uL (4.20-5.40)
== END 2017-01-26 13:36 | disposition home or self-care (01) ==
LOC: NAV ERS 12:19
DX: O21.0 Mild hyperemesis gravidarum (principal); Z3A.17 17 weeks gestation of pregnancy; Z79.899 Other long term (current) drug therapy
CPT/HCPCS: 36415; 80053; 85025; 96361; 96374; J2405; J7050

== ENCOUNTER 2017-04-21 16:22 | Emergency (ER) | payer MEDICAID | END 2017-04-21 18:38 | disposition home or self-care (01) | LOC: NAV ERS 16:22 | DX: O99.513 Diseases of the respiratory system complicating pregnancy, third trimester (principal); J06.9 Acute upper respiratory infection, unspecified; Z79.899 Other long term (current) drug therapy; Z3A.28 28 weeks gestation of pregnancy | CPT/HCPCS: 87081; 87430; 99283 ==

== ENCOUNTER 2023-08-06 11:21 | Emergency (ER) | payer BC, OTHER | END 2023-08-06 11:49 | disposition home or self-care (01) | LOC: NAV ERS 11:21 | DX: K03.81 Cracked tooth (principal); K02.9 Dental caries, unspecified; K04.7 Periapical abscess without sinus; I10 Essential (primary) hypertension | CPT/HCPCS: 99282 ==

== ENCOUNTER 2023-10-16 17:51 | Emergency (ER) | payer MEDICAID, SELFPAY | END 2023-10-16 18:45 | disposition left against medical advice (07) | LOC: NAV ERS 17:51 | DX: Z53.21 Procedure and treatment not carried out due to patient leaving prior to being seen by health care provider (principal) ==